=== PATIENT | male | born 1965 | race Caucasian/White ===

== ENCOUNTER 2018-09-05 22:44 | Emergency (ER) | payer MEDICAID, OTHER ==
[2018-09-06] MEDS: ACETAMINOPHEN 325 MG TAB PO (03:25)
[2018-09-06] MEDS: IBUPROFEN 200 MG TAB PO (03:26)
== END 2018-09-06 03:42 | disposition home or self-care (01) ==
LOC: FTE 22:44
DX: M54.5 Low back pain (principal)
CPT/HCPCS: 99282; Z7502